=== PATIENT | male | born 1950 | race Hispanic/Latino ===

== ENCOUNTER 2020-01-22 06:30 | Day surgery (SDC) | payer OTHER, MEDICARE ==
[2020-01-19 14:11] VITALS: BP 149/85; PULSE 116; RESP 17
--- NOTE | 2020-01-19 15:04 | NUR ---
RE: ABNORMAL LABS INFORMED DEBRA AVELAR REGARDING PLT 512. NO NEW ORDERS RECEIVED, MAY PROCEED WITH PROCEDURE.
[2020-01-22] VITALS (10 sets, daily range): BP systolic 92–133; BP diastolic 45–84; PULSE 61–93; RESP 15–17; TEMP 97.5–97.8
[~2020-01-22] VITALS: Ht 168.9 cm; Wt 77.3 kg
[2020-01-22] MEDS ORDERED: NITROGLYCERIN 2 MG/VIAL VIAL IV ONE (07:36)
[2020-01-22] MEDS ORDERED: SODIUM BICARB 50MEQ 50ML VIAL ONE (07:36)
[2020-01-22] MEDS ORDERED: HEPARIN SODIUM 1000UNIT/ML 10ML VIAL ONE (07:36)
[2020-01-22] MEDS ORDERED: IODIXANOL 320 MG/ML 100 ML VIAL ONE (07:37)
[2020-01-22] MEDS ORDERED: FENTANYL CITRATE PF 50 MCG/1 ML 2ML VIAL ONE (07:37)
[2020-01-22] MEDS ORDERED: LIDOCAINE HCL 2% 20ML ONE (07:37)
[2020-01-22] MEDS ORDERED: MIDAZOLAM HCL 1 MG/ML 2ML VIAL ONE (07:37)
[2020-01-22] MEDS ORDERED: SODIUM CHLORIDE 0.9% 1000ML 1,000 ML IV ONE (09:12)
[2020-01-22] MEDS ORDERED: LABETALOL HCL 5 MG/ML 20ML VIAL IV ONE (10:08)
== END 2020-01-22 15:08 | disposition home or self-care (01) ==
LOC: DAH 06:30
PROVIDERS: ATTEND Internal Medicine Cardiovascular Disease
DX: I70.261 Atherosclerosis of native arteries of extremities with gangrene, right leg (principal); I70.92 Chronic total occlusion of artery of the extremities; E11.51 Type 2 diabetes mellitus with diabetic peripheral angiopathy without gangrene; I10 Essential (primary) hypertension; F41.9 Anxiety disorder, unspecified; E11.40 Type 2 diabetes mellitus with diabetic neuropathy, unspecified; E78.5 Hyperlipidemia, unspecified; K21.9 Gastro-esophageal reflux disease without esophagitis; Z88.0 Allergy status to penicillin; Z88.2 Allergy status to sulfonamides; Z79.899 Other long term (current) drug therapy; Z79.84 Long term (current) use of oral hypoglycemic drugs; Z98.890 Other specified postprocedural states; Z79.4 Long term (current) use of insulin; Z95.5 Presence of coronary angioplasty implant and graft; Z88.1 Allergy status to other antibiotic agents; Z82.49 Family history of ischemic heart disease and other diseases of the circulatory system; Z79.01 Long term (current) use of anticoagulants
CPT/HCPCS: 36247; 36415; 71045; 75710; 80048; 81001; 82948 ×2; 85025; 85610; 85730; 93005; A4215; A4216; A4221; A4222; A4223 ×3; A4606; A4663; C1760; C1769; C1893; C1894 ×2; J1644; J2250; J3010; J3490 ×4; J7030; Q9967

== ENCOUNTER 2020-03-27 12:57 | Inpatient (IN) | payer OTHER, MEDICARE ==
[~2020-03-27] VITALS: Ht 172.7 cm; Wt 80.7 kg
[2020-03-27] VITALS (7 sets, daily range): BP systolic 107–131; BP diastolic 60–109
[~2020-03-27 12:57] MED LIST: DOCU-282 PO; INSLAN SQ; METF-446 PO
[2020-03-27] MEDS ORDERED: MEROPENEM 1 GM VIAL ONE (13:18)
[2020-03-27] MEDS ORDERED: SODIUM CHLORIDE 0.9% 1000ML 2,000 ML IV ONE (13:18)
[2020-03-27] MEDS ORDERED: SODIUM CHLORIDE 0.9% 100 ML IV ONE ×2 (13:19→15:12)
[2020-03-27 13:23] LABS: BASOPHILS % (AUTO) 0.1 % (0.0-5.0); EOSINOPHILS % (AUTO) 0.1 % (0.0-8.0); HEMATOCRIT 39.1 % (42-54); LYMPHOCYTES % (AUTO) 6.1 % (21.0-51.0); MEAN CORPUSCULAR HEMOGLOBIN 28.4 pg (27.0-33.0); MEAN CORPUSCULAR HGB CONC 32.2 g/dL (32.0-36.0); MEAN CORPUSCULAR VOLUME 88.1 fL (79-99); MONOCYTES % (AUTO) 11.1 % (3.0-13.0); NEUTROPHILS % (AUTO) 82.1 % (40.0-77.0); NUCLEATED RED BLOOD CELLS 0.5 % (0.0-0.19); PLATELET COUNT (AUTO) 455 K/uL (130-400); RED BLOOD CELL COUNT(AUTO) 4.44 MIL/uL (4.50-6.20); RED CELL DISTRIBUTION WIDTH 13.8 % (11.0-15.5); WHITE BLOOD COUNT (AUTO) 19.2 K/uL (4.8-10.8)
[2020-03-27 13:41] LABS: PARTIAL THROMBOPLASTIN TIME 22.9 SEC (26.3-35.5)
[2020-03-27 13:52] LABS: INR 1.2 (0.85-1.15); PROTHROMBIN TIME 12.9 SEC (9.6-11.6)
[2020-03-27 14:04] LABS: BILIRUBIN,TOTAL 0.8 mg/dL (0.2-1.0); CARBON DIOXIDE 13 mmol/L (21-32); CHLORIDE 93 mmol/L (101-111); CREATINE KINASE, TOTAL 197 U/L (21-232); CREATININE 2.6 mg/dL (0.5-1.5); GLOMERULAR FILTR. RATE CALC 26 mL/min (>60); POTASSIUM 3.7 mmol/L (3.5-5.1); SODIUM SERUM 135 mmol/L (136-145); UREA NITROGEN, BLOOD 49 mg/dL (7-18)
[2020-03-27 14:04] LABS: APPEARANCE,URINE Clear (CLEAR); BILIRUBIN,URINE Negative (NEGATIVE); COLOR,URINE Yellow (YELLOW); GLUCOSE, URINE (UA) >=1000 mg/dL (NEGATIVE); KETONES,URINE Trace mg/dL (NEGATIVE); LEUKOCYTE ESTERASE ,URINE Negative (NEGATIVE); NITRATE,URINE Negative (NEGATIVE); OCCULT BLOOD,URINE Negative (NEGATIVE); PROTEIN,URINE Negative (NEGATIVE)
[2020-03-27 14:05] LABS: ALBUMIN 2.7 g/dL (3.5-5.0); TOTAL PROTEIN, SERUM 6.9 g/dL (6.0-8.3); TROPONIN I < 0.04 ng/mL (0.00-0.06)
[2020-03-27 14:06] LABS: GLUCOSE,RANDOM 551 mg/dL (70-105)
[2020-03-27 14:08] LABS: MYOGLOBIN 1243 ng/mL (10-92)
[2020-03-27 14:14] LABS: BACTERIA,URINE Rare /HPF (None Seen); RBC,URINE 0-1 /HPF (0-1); SQUAMOUS EPITHELIAL CELL,UR Rare /HPF (0-2); WBC,URINE 0-1 /HPF (0-1)
[2020-03-27] MEDS ORDERED: INSULIN HUMULIN R 100 UNIT/ML 3ML ONE ×2 (14:19→15:12)
[2020-03-27 14:22] LABS: ALANINE AMINOTRANSFERASE 20 U/L (12-78); ASPARTATE AMINOTRANSFERASE 29 U/L (10-37)
[2020-03-27 14:47] LABS: ABG BASE EXCESS -9.5 mmol/L (-2.0-3.0); ABG OXYGEN SATURATION 98.1 % (95.0-99.0); ABG PCO2 26 mmHg (35-48)
[2020-03-27] MEDS ORDERED: NS-20 MEQ KCL 1000ML 1,000 ML IV ONE (16:10)
[2020-03-27] MEDS: SODIUM CHLORIDE 0.9% 1000ML 1,000 ML IV SCH ×2 (16:15→22:20)
[2020-03-27] MEDS ORDERED: INSULIN REGULAR, HUMAN 3ML 100 UNIT in SODIUM CHLORIDE 0.9% 99 ML IV PRN ×2 (16:15)
--- NOTE | 2020-03-27 17:15 | NUR ---
ADMISSION TO ICU PT WAS ADMITTED TO THE ROOM AT 1715. VITAL SIGNS [id number]. MEDITECH SYSTEM WAS DOWN AND UNABLE TO CHART. PT HAD COFFEE GROUNDED SPUTUM. BRISA CANDELARIO WAS MADE AWARE. ORDERED PROTONIX AND SANDOSTATIN DRIP. DR. LESLIE WAS CONSULTED AND HAS ASKED FOR A COVID PCR TEST PRIOR TO DOING AN EGD. BG CHECKS Q1HR DURING DOWN TIME. INSULIN DRIP MAINTAINED.
[2020-03-27] MEDS ORDERED: ONDANSETRON HCL 4 MG/2 ML VIAL ONE (18:33)
[2020-03-27] MEDS ORDERED: OCTREOTIDE ACETATE 1,250 MCG in SODIUM CHLORIDE 0.9% 250 ML IV SCH (18:45)
[2020-03-27] MEDS ORDERED: PANTOPRAZOLE SODIUM 80 MG in SODIUM CHLORIDE 0.9% 100 ML IV SCH (18:45)
[2020-03-27] MEDS ORDERED: DOCUSATE SODIUM 100 MG CAP PO SCH (19:00)
[2020-03-27] MEDS ORDERED: INSULIN REGULAR, HUMAN 3ML 100 UNIT in SODIUM CHLORIDE 0.9% 99 ML IV SCH ×2 (19:30)
[2020-03-27 19:51] LABS: HEMATOCRIT 34.6 % (42-54)
[2020-03-27] MEDS ORDERED: HEPARIN SODIUM 5000UNIT/ML 1ML VIAL SQ SCH (21:00)
[2020-03-27] MEDS: HYDROMORPHONE HCL 0.5 MG/0.5 ML ML IVP PRN (21:05)
[2020-03-27] MEDS: ONDANSETRON HCL 4 MG/2 ML VIAL IVP PRN (21:06)
[2020-03-27] MEDS ORDERED: SODIUM CHLORIDE 0.9% 1000ML 1,000 ML IV SCH (21:45)
[2020-03-27] MEDS: METRONIDAZOLE 500MG/100ML BAG 100 ML IV SCH (21:52)
[2020-03-27 22:19] LABS: BASOPHILS % (AUTO) 0.1 % (0.0-5.0); HEMATOCRIT 23.9 % (42-54); LYMPHOCYTES % (AUTO) 6.5 % (21.0-51.0); MEAN CORPUSCULAR HEMOGLOBIN 28.4 pg (27.0-33.0); MEAN CORPUSCULAR HGB CONC 33.5 g/dL (32.0-36.0); MEAN CORPUSCULAR VOLUME 84.8 fL (79-99); MONOCYTES % (AUTO) 10.6 % (3.0-13.0); NEUTROPHILS % (AUTO) 82.2 % (40.0-77.0); NUCLEATED RED BLOOD CELLS 0.4 % (0.0-0.19); PLATELET COUNT (AUTO) 226 K/uL (130-400); RED BLOOD CELL COUNT(AUTO) 2.82 MIL/uL (4.50-6.20); RED CELL DISTRIBUTION WIDTH 13.7 % (11.0-15.5)
[2020-03-27 22:23] LABS: ABG BASE EXCESS -1.9 mmol/L (-2.0-3.0); ABG HCO3 21.8 mmol/L (21.0-28.0); ABG OXYGEN SATURATION 95.6 % (95.0-99.0); ABG PCO2 34 mmHg (35-48)
[2020-03-27 23:26] LABS: CREATININE 1.4 mg/dL (0.5-1.5); POTASSIUM 3.2 mmol/L (3.5-5.1)
[2020-03-27 23:30] LABS: ALBUMIN 1.9 g/dL (3.5-5.0); BILIRUBIN,TOTAL 0.3 mg/dL (0.2-1.0); MAGNESIUM 1.9 mg/dL (1.80-2.40)
[2020-03-28] VITALS (23 sets, daily range): BP systolic 102–137; BP diastolic 55–78
[2020-03-28] MEDS ORDERED: SODIUM CHLORIDE 0.9% 1000ML 1,000 ML IV ONE
[2020-03-28] MEDS ORDERED: METOPROLOL TARTRATE 1 MG/ML 5ML VIAL IV ONE (00:09)
[2020-03-28] MEDS ORDERED: DEXTROSE 50%-WATER 50 ML DISP.SYRIN IV ONE (00:38)
[2020-03-28] MEDS: DEXTROSE 5 %-0.45 % NACL 1,000 ML IV PRN ×3 (01:56→21:37)
[2020-03-28] MEDS: POTASSIUM CHLORIDE 10MEQ/100ML 100 ML IV PRN ×2 (02:06→03:14)
[2020-03-28] MEDS: SODIUM CHLORIDE 0.9% 1000ML 1,000 ML IV SCH ×9 (02:15→23:29)
[2020-03-28] MEDS: HYDROMORPHONE HCL 0.5 MG/0.5 ML ML IVP PRN (03:13)
[2020-03-28 04:04] LABS: BASOPHILS % (AUTO) 0.2 % (0.0-5.0); EOSINOPHILS % (AUTO) 0.6 % (0.0-8.0); HEMATOCRIT 31.4 % (42-54); MEAN CORPUSCULAR HGB CONC 32.8 g/dL (32.0-36.0); MEAN CORPUSCULAR VOLUME 85.3 fL (79-99); MONOCYTES % (AUTO) 10.4 % (3.0-13.0); NEUTROPHILS % (AUTO) 81.4 % (40.0-77.0); NUCLEATED RED BLOOD CELLS 0.4 % (0.0-0.19); PLATELET COUNT (AUTO) 317 K/uL (130-400); RED BLOOD CELL COUNT(AUTO) 3.68 MIL/uL (4.50-6.20); RED CELL DISTRIBUTION WIDTH 13.7 % (11.0-15.5); WHITE BLOOD COUNT (AUTO) 11.2 K/uL (4.8-10.8)
[2020-03-28 04:14] LABS: ABG BASE EXCESS -5.3 mmol/L (-2.0-3.0); ABG HCO3 19.5 mmol/L (21.0-28.0); ABG OXYGEN SATURATION 95.6 % (95.0-99.0); ABG PCO2 36 mmHg (35-48)
[2020-03-28 04:21] LABS: B-TYPE NATRIURETIC PEPTIDE 54 pg/mL (0-100)
[2020-03-28 04:30] LABS: HEMOGLOBIN A1C 7.9 % (4.0-6.0)
[2020-03-28 04:32] LABS: ALBUMIN 1.8 g/dL (3.5-5.0); BILIRUBIN,TOTAL 0.5 mg/dL (0.2-1.0); CREATININE 1.4 mg/dL (0.5-1.5); MAGNESIUM 2.4 mg/dL (1.80-2.40); PHOSPHORUS 2.8 mg/dL (2.5-4.9); POTASSIUM 4.2 mmol/L (3.5-5.1); TOTAL PROTEIN, SERUM 4.8 g/dL (6.0-8.3)
[2020-03-28] MEDS: METRONIDAZOLE 500MG/100ML BAG 100 ML IV SCH ×3 (06:50→21:41)
[2020-03-28] MEDS: METOPROLOL TARTRATE 1 MG/ML 5ML VIAL IV PRN (06:56)
[2020-03-28] MEDS: PANTOPRAZOLE 40 MG/VIAL IVP SCH (08:39)
[2020-03-28] MEDS: METOPROLOL TARTRATE 1 MG/ML 5ML VIAL IV SCH (08:59)
[2020-03-28 09:29] LABS: ABG HCO3 20.8 mmol/L (21.0-28.0); ABG OXYGEN SATURATION 95.7 % (95.0-99.0); ABG PCO2 34 mmHg (35-48)
[2020-03-28 10:08] LABS: CREATININE 1.3 mg/dL (0.5-1.5); MAGNESIUM 1.9 mg/dL (1.80-2.40); POTASSIUM 3.8 mmol/L (3.5-5.1)
[2020-03-28] MEDS: ACETAMINOPHEN 325 MG TAB PO PRN ×2 (12:29→21:42)
[2020-03-28] MEDS ORDERED: LACTATED RINGERS 1000ML 2,000 ML IV ONE (13:05)
[2020-03-28] MEDS ORDERED: LACTATED RINGERS 1000ML 1,000 ML IV SCH (13:15)
[2020-03-28] MEDS: LACTATED RINGERS 1000ML 1,000 ML IV SCH ×4 (14:08→23:27)
[2020-03-28] MEDS ORDERED: HYDRALAZINE HCL 20 MG/ML VIAL IV PRN (15:45)
[2020-03-28] MEDS ORDERED: ACETAMINOPHEN-CODEINE 300/30MG TAB PO PRN (15:45)
[2020-03-28 16:06] LABS: MAGNESIUM 1.7 mg/dL (1.80-2.40); POTASSIUM 3.3 mmol/L (3.5-5.1)
--- NOTE | 2020-03-28 17:37 | NUR ---
DC PLAN CHECKED ON PATIENT. SLEEPING. CALLED SON ON FACE SHEET NO ANSWER. BELINDA WILL CONTINUE TO FOLLOW. Addendum: 03/28/20 at 1738 by CARLOS LOPEZ RN CM Amended: Links added.
--- NOTE | 2020-03-28 20:00 | NUR ---
ASSESSMENT PT RESTING IN BED, C/O NAUSEA AND ABD PAIN. IV FLUIDS INFUSING WITHOUT DIFFICULTY. ASSESSMENT COMPLETED, SEE FLOW SHEET.
[2020-03-28] MEDS: MAGNESIUM 2GM PREMIX 50ML 50 ML IV PRN (21:41)
[2020-03-28] MEDS: ONDANSETRON HCL 4 MG/2 ML VIAL IVP PRN (21:43)
[2020-03-29] VITALS (20 sets, daily range): BP systolic 105–139; BP diastolic 49–74
--- NOTE | 2020-03-29 03:00 | NUR ---
COVID NEGATIVE PT COVID NEGATIVE, SEE LAB. DR LESLIE PENDING NOTIFICATION FOR THIS MORNING
[2020-03-29 03:34] LABS: BASOPHILS % (AUTO) 0.4 % (0.0-5.0); EOSINOPHILS % (AUTO) 0.2 % (0.0-8.0); HEMATOCRIT 28.7 % (42-54); LYMPHOCYTES % (AUTO) 10.8 % (21.0-51.0); MEAN CORPUSCULAR HEMOGLOBIN 28.1 pg (27.0-33.0); MEAN CORPUSCULAR HGB CONC 32.8 g/dL (32.0-36.0); MEAN CORPUSCULAR VOLUME 85.9 fL (79-99); MONOCYTES % (AUTO) 6.3 % (3.0-13.0); NEUTROPHILS % (AUTO) 81.7 % (40.0-77.0); NUCLEATED RED BLOOD CELLS 0.4 % (0.0-0.19); PLATELET COUNT (AUTO) 299 K/uL (130-400); RED BLOOD CELL COUNT(AUTO) 3.34 MIL/uL (4.50-6.20); RED CELL DISTRIBUTION WIDTH 14.2 % (11.0-15.5); WHITE BLOOD COUNT (AUTO) 5.4 K/uL (4.8-10.8)
[2020-03-29 03:53] LABS: ALBUMIN 1.5 g/dL (3.5-5.0); BILIRUBIN,TOTAL 0.3 mg/dL (0.2-1.0); CREATININE 0.9 mg/dL (0.5-1.5); MAGNESIUM 2.5 mg/dL (1.80-2.40); PHOSPHORUS 1.7 mg/dL (2.5-4.9); TOTAL PROTEIN, SERUM 4.3 g/dL (6.0-8.3)
[2020-03-29 03:54] LABS: POTASSIUM 2.7 mmol/L (3.5-5.1)
--- NOTE | 2020-03-29 05:00 | NUR ---
JULIA VALVERDE NP MADE AWARE OF K LEVEL OF 2.7, SEE ORDERS FOR KCL PROTOCOL
[2020-03-29] MEDS: METRONIDAZOLE 500MG/100ML BAG 100 ML IV SCH ×3 (05:18→20:55)
[2020-03-29] MEDS ORDERED: POTASSIUM CHLORIDE 20MEQ/100ML 100 ML IV ONE (05:22)
[2020-03-29] MEDS: METOPROLOL TARTRATE 1 MG/ML 5ML VIAL IV SCH (07:23)
[2020-03-29] MEDS: DEXTROSE 5 %-0.45 % NACL 1,000 ML IV PRN (07:37)
[2020-03-29] MEDS: PANTOPRAZOLE 40 MG/VIAL IVP SCH (08:01)
[2020-03-29] MEDS: POTASSIUM CHLORIDE 20MEQ/100ML 100 ML IV PRN ×3 (08:17→15:42)
[2020-03-29] MEDS: LIDOCAINE HCL-MPF 1% 2ML VIAL IV PRN ×2 (08:18→10:13)
--- NOTE | 2020-03-29 08:30 | NUR ---
Dr Rizvi notified about COVID PCR negative, new orders given to schedule EGD for today
[2020-03-29] MEDS ORDERED: POTASSIUM PHOS 15 mMOL+NS250ML 250 ML IV PRN (09:00)
--- NOTE | 2020-03-29 09:25 | NUR ---
Administered fleets enema, as ordered per Emiliana SamsonEX CHEF
--- NOTE | 2020-03-29 10:30 | NUR ---
Noted moderate size brown colored soft stool after enema given, nicolás care provided
--- NOTE | 2020-03-29 12:55 | NUR ---
Transferred to [facility] via bed for scheduled EGD
[2020-03-29] MEDS ORDERED: MIDAZOLAM HCL 1 MG/ML 2ML VIAL ONE (13:29)
[2020-03-29] MEDS ORDERED: PROPOFOL 10 MG/ML 20ML VIAL IV ONE (13:29)
--- NOTE | 2020-03-29 14:10 | NUR ---
Back in bed from Endoscopy. Dr Yuen at bedside to assess patient, new orders given
--- NOTE | 2020-03-29 14:10 | NUR ---
New orders given per Dr Yuen, including to discontinue Insulin Drip which was turned off since this AM at 0800, due to low K level
[2020-03-29] MEDS ORDERED: DEXTROSE 50%-WATER 50 ML DISP.SYRIN IV PRN (14:45)
[2020-03-29] MEDS ORDERED: GLUCAGON 1MG KIT 1 MG ML IM PRN (14:45)
[2020-03-29] MEDS: INSULIN GLARGINE 100 UNITS/ML 10 ML VIAL SQ SCH (14:59)
[2020-03-29] MEDS: INSULIN HUMULIN R 100 UNIT/ML 3ML SQ SCH ×4 (15:00→20:47)
--- NOTE | 2020-03-29 15:00 | NUR ---
Administered fleets enema at this time, as ordered per Dr Rizvi
[2020-03-29] MEDS: LACTULOSE 20 GM/30 ML UDCUP PO SCH ×5 (15:04→22:55)
[2020-03-29] MEDS: METHYLNALTREXONE BROMIDE 12 MG/0.6 ML VIAL SQ SCH (15:19)
--- NOTE | 2020-03-29 16:27 | NUR ---
DC PLAN PATIENT LIVES WITH SON AND DAUGHTER. PATIENT USES A WALKER, WHEEL CHAIR AND CANE. NO OTHER SERVICES. FEELS SAFE TO RETURN HOME. Addendum: 03/29/20 at 1629 by CARLOS LOPEZ RN CM Amended: Links added.
--- NOTE | 2020-03-29 17:15 | NUR ---
Tolerated clear liquid diet well, denies any nausea or vomiting, 3 large very soft BMs noted after second enema given
--- NOTE | 2020-03-29 18:26 | NUR ---
Bedside report given to Rico Mariee RN, transferred to room 414 via bed.
--- NOTE | 2020-03-29 18:30 | NUR ---
TRANSFER FROM ICU INTO 414, RECEIVED REPORT FROM CHUCKY RN, PT ASLEEP BUT AROUSEABLE, A&OX3, PT RESTING COMFORTABLY, CALL LIGHT WITHIN REACH.
[2020-03-29 19:28] LABS: HEMATOCRIT 27.4 % (42-54)
[2020-03-29] MEDS: PANTOPRAZOLE SODIUM 40 MG TABLET.DR PO SCH (20:55)
[2020-03-29] MEDS: METOPROLOL TARTRATE 1 MG/ML 5ML VIAL IV PRN (23:16)
[2020-03-30 00:04] VITALS: BP 127/72
[2020-03-30 04:12] VITALS: BP 125/68
[2020-03-30 05:18] LABS: BASOPHILS % (AUTO) 0.5 % (0.0-5.0); EOSINOPHILS % (AUTO) 0.5 % (0.0-8.0); HEMATOCRIT 28.5 % (42-54); LYMPHOCYTES % (AUTO) 10.1 % (21.0-51.0); MEAN CORPUSCULAR HEMOGLOBIN 27.8 pg (27.0-33.0); MEAN CORPUSCULAR HGB CONC 32.3 g/dL (32.0-36.0); MEAN CORPUSCULAR VOLUME 86.1 fL (79-99); MONOCYTES % (AUTO) 11.2 % (3.0-13.0); NUCLEATED RED BLOOD CELLS 0.8 % (0.0-0.19); PLATELET COUNT (AUTO) 421 K/uL (130-400); RED BLOOD CELL COUNT(AUTO) 3.31 MIL/uL (4.50-6.20); RED CELL DISTRIBUTION WIDTH 14.6 % (11.0-15.5); WHITE BLOOD COUNT (AUTO) 6.1 K/uL (4.8-10.8)
[2020-03-30 05:48] LABS: ALBUMIN 1.4 g/dL (3.5-5.0); BILIRUBIN,TOTAL 0.4 mg/dL (0.2-1.0); CREATININE 0.8 mg/dL (0.5-1.5); MAGNESIUM 2.6 mg/dL (1.80-2.40); TOTAL PROTEIN, SERUM 4.6 g/dL (6.0-8.3)
[2020-03-30] MEDS: METRONIDAZOLE 500MG/100ML BAG 100 ML IV SCH ×3 (05:57→20:54)
[2020-03-30] MEDS: INSULIN HUMULIN R 100 UNIT/ML 3ML SQ SCH ×7 (06:00→20:54)
[2020-03-30] MEDS: HYDROMORPHONE HCL 0.5 MG/0.5 ML ML IVP PRN (06:02)
[2020-03-30 07:48] VITALS: BP 126/74
[2020-03-30] MEDS ORDERED: PEG 3350/NA SULF,BICARB,CL/KCL 4000 ML SOLN PO SCH (09:00)
[2020-03-30] MEDS: LIDOCAINE HCL-MPF 1% 2ML VIAL IV PRN (09:35)
[2020-03-30] MEDS: METOPROLOL TARTRATE 1 MG/ML 5ML VIAL IV PRN (09:35)
[2020-03-30] MEDS: PANTOPRAZOLE SODIUM 40 MG TABLET.DR PO SCH ×2 (09:35→20:54)
[2020-03-30] MEDS: POTASSIUM CHLORIDE 20MEQ/100ML 100 ML IV PRN ×3 (11:35→21:41)
[2020-03-30 11:37] VITALS: BP 128/76
[2020-03-30] MEDS: INSULIN GLARGINE 100 UNITS/ML 10 ML VIAL SQ SCH (11:37)
[2020-03-30 16:00] VITALS: BP 107/62
[2020-03-30 19:40] VITALS: BP 121/62
[2020-03-31 00:19] VITALS: BP 113/55
[2020-03-31 05:33] LABS: BASOPHILS % (AUTO) 0.3 % (0.0-5.0); EOSINOPHILS % (AUTO) 1.6 % (0.0-8.0); HEMATOCRIT 24.8 % (42-54); LYMPHOCYTES % (AUTO) 11.7 % (21.0-51.0); MEAN CORPUSCULAR HGB CONC 32.3 g/dL (32.0-36.0); MEAN CORPUSCULAR VOLUME 86.7 fL (79-99); MONOCYTES % (AUTO) 12.7 % (3.0-13.0); NEUTROPHILS % (AUTO) 72.9 % (40.0-77.0); PLATELET COUNT (AUTO) 412 K/uL (130-400); RED BLOOD CELL COUNT(AUTO) 2.86 MIL/uL (4.50-6.20); RED CELL DISTRIBUTION WIDTH 14.9 % (11.0-15.5); WHITE BLOOD COUNT (AUTO) 6.2 K/uL (4.8-10.8)
[2020-03-31 05:58] LABS: ALBUMIN 1.2 g/dL (3.5-5.0); BILIRUBIN,TOTAL 0.4 mg/dL (0.2-1.0); CREATININE 0.7 mg/dL (0.5-1.5); TOTAL PROTEIN, SERUM 3.8 g/dL (6.0-8.3)
[2020-03-31 06:01] LABS: POTASSIUM 2.8 mmol/L (3.5-5.1)
[2020-03-31] MEDS: INSULIN HUMULIN R 100 UNIT/ML 3ML SQ SCH ×7 (06:08→20:32)
[2020-03-31] MEDS: METRONIDAZOLE 500MG/100ML BAG 100 ML IV SCH ×2 (06:08→13:14)
[2020-03-31 06:21] VITALS: BP 124/61
[2020-03-31] MEDS: METHYLNALTREXONE BROMIDE 12 MG/0.6 ML VIAL SQ SCH (09:00)
[2020-03-31] MEDS: PANTOPRAZOLE SODIUM 40 MG TABLET.DR PO SCH ×2 (09:01→19:52)
[2020-03-31] MEDS: INSULIN GLARGINE 100 UNITS/ML 10 ML VIAL SQ SCH (09:03)
[2020-03-31] MEDS: POTASSIUM CHLORIDE 20 MEQ ERTAB PO PRN ×3 (09:08→15:31)
[2020-03-31] MEDS: POTASSIUM CHLORIDE 20MEQ/100ML 100 ML IV PRN (09:09)
[2020-03-31 11:47] VITALS: BP 133/50
--- NOTE | 2020-03-31 15:20 | NUR ---
RIGHT FOOT AMPUTATION DRESSING CHANGED, IODINE, STERILE GAUZES AND KERLIX APPLY.
[2020-03-31 16:00] VITALS: BP 125/77
[2020-03-31 20:29] VITALS: BP 138/44
[2020-03-31 23:38] VITALS: BP 160/64
[2020-04-01] MEDS: LIDOCAINE HCL-MPF 1% 2ML VIAL IV PRN (00:21)
[2020-04-01] MEDS: POTASSIUM CHLORIDE 20MEQ/100ML 100 ML IV PRN ×2 (00:21→09:43)
[2020-04-01] MEDS: POTASSIUM CHLORIDE 20 MEQ ERTAB PO PRN ×4 (00:21→23:49)
[2020-04-01 04:25] VITALS: BP 116/54
[2020-04-01 05:25] LABS: BASOPHILS % (AUTO) 0.5 % (0.0-5.0); HEMATOCRIT 25.7 % (42-54); LYMPHOCYTES % (AUTO) 11.8 % (21.0-51.0); MEAN CORPUSCULAR HEMOGLOBIN 28.1 pg (27.0-33.0); MEAN CORPUSCULAR HGB CONC 33.1 g/dL (32.0-36.0); MEAN CORPUSCULAR VOLUME 85.1 fL (79-99); MONOCYTES % (AUTO) 12.3 % (3.0-13.0); NEUTROPHILS % (AUTO) 71.6 % (40.0-77.0); PLATELET COUNT (AUTO) 453 K/uL (130-400); RED BLOOD CELL COUNT(AUTO) 3.02 MIL/uL (4.50-6.20); RED CELL DISTRIBUTION WIDTH 14.6 % (11.0-15.5); WHITE BLOOD COUNT (AUTO) 6.1 K/uL (4.8-10.8)
[2020-04-01 05:48] LABS: ALBUMIN 1.2 g/dL (3.5-5.0); BILIRUBIN,TOTAL 0.3 mg/dL (0.2-1.0); CREATININE 0.5 mg/dL (0.5-1.5); MAGNESIUM 1.5 mg/dL (1.80-2.40); PHOSPHORUS 1.5 mg/dL (2.5-4.9)
[2020-04-01] MEDS: INSULIN HUMULIN R 100 UNIT/ML 3ML SQ SCH ×7 (06:11→20:34)
[2020-04-01] MEDS: MAGNESIUM 2GM PREMIX 50ML 50 ML IV PRN (06:17)
[2020-04-01] MEDS ORDERED: POTASSIUM CHLORIDE 10MEQ/100ML 10 MEQ/100 ML ML IV SCH (08:15)
[2020-04-01] MEDS ORDERED: SODIUM CHLORIDE 0.9% IV SCH (08:15)
[2020-04-01] MEDS ORDERED: POTASSIUM PHOSPHATE IV SCH (08:15)
[2020-04-01] MEDS: TAMSULOSIN HCL 0.4 MG CAP.ER.24H PO SCH (09:40)
[2020-04-01] MEDS: PANTOPRAZOLE SODIUM 40 MG TABLET.DR PO SCH ×2 (09:41→20:34)
[2020-04-01] MEDS: ENOXAPARIN SODIUM 40 MG/0.4 ML SYRINGE SQ SCH (09:43)
[2020-04-01 13:35] VITALS: BP 114/63
[2020-04-01] MEDS ORDERED: PHARMACY COMMUNICATION MISC SCH (14:00)
--- NOTE | 2020-04-01 14:47 | NUR ---
SPOKE TO SON ADRIAN ADEN PLNANING SON ANGELA DIOR LOOKS AFTER FATHER- STATES PATIENT WAS 'ALWAYS ON THE COUCH' BECAUSE HE WAS TOO WEAK TO GET UP. STATES PATIENT 'NOT TREATED FOR HIS DM AT [facility] [place],' WAS WALKING W WALKER PRIOR TO ADMISSION THERE. DOES NOT WANT PLACEMENT FOR PATIENT, WELL MED WILL SEND HOME HEALTH. DECLINING ANY PLACEMENT AT THIS TIME, CM TO FOLLOW. Addendum: 04/01/20 at 1450 by MO DOMINGUEZ RN CM Amended: Links added.
[2020-04-01] MEDS ORDERED: POTASSIUM PHOS 15 mMOL+NS250ML 250 ML IV PRN (15:30)
[2020-04-01] MEDS ORDERED: MAG HYDROX/AL HYDROX/SIMETH ES 30 ML SUSP UDCUP PO PRN (15:45)
[2020-04-01 15:51] LABS: MAGNESIUM 1.7 mg/dL (1.80-2.40); POTASSIUM 3.1 mmol/L (3.5-5.1)
[2020-04-01 18:13] VITALS: BP 127/63
[2020-04-01 19:49] VITALS: BP 118/64
[2020-04-01 23:45] VITALS: BP 99/53
[2020-04-02] VITALS (7 sets, daily range): BP systolic 107–147; BP diastolic 41–83
[2020-04-02 06:03] LABS: BASOPHILS % (AUTO) 0.2 % (0.0-5.0); EOSINOPHILS % (AUTO) 1.1 % (0.0-8.0); HEMATOCRIT 24.7 % (42-54); MEAN CORPUSCULAR HEMOGLOBIN 27.2 pg (27.0-33.0); MEAN CORPUSCULAR VOLUME 85.2 fL (79-99); MONOCYTES % (AUTO) 12.5 % (3.0-13.0); NEUTROPHILS % (AUTO) 73.2 % (40.0-77.0); PLATELET COUNT (AUTO) 458 K/uL (130-400); RED CELL DISTRIBUTION WIDTH 14.6 % (11.0-15.5); WHITE BLOOD COUNT (AUTO) 5.3 K/uL (4.8-10.8)
[2020-04-02 06:27] LABS: ALBUMIN 1.1 g/dL (3.5-5.0); BILIRUBIN,TOTAL 0.3 mg/dL (0.2-1.0); CREATININE 0.5 mg/dL (0.5-1.5); MAGNESIUM 1.4 mg/dL (1.80-2.40); PHOSPHORUS 2.3 mg/dL (2.5-4.9); TOTAL PROTEIN, SERUM 3.7 g/dL (6.0-8.3)
[2020-04-02 06:34] LABS: POTASSIUM 2.9 mmol/L (3.5-5.1)
[2020-04-02] MEDS: INSULIN HUMULIN R 100 UNIT/ML 3ML SQ SCH ×7 (06:36→21:00)
[2020-04-02] MEDS: PANTOPRAZOLE SODIUM 40 MG TABLET.DR PO SCH ×2 (07:38→21:11)
[2020-04-02] MEDS: ENOXAPARIN SODIUM 40 MG/0.4 ML SYRINGE SQ SCH (07:38)
[2020-04-02] MEDS: TAMSULOSIN HCL 0.4 MG CAP.ER.24H PO SCH (07:38)
[2020-04-02] MEDS: POTASSIUM CHLORIDE 10% ELIXIR 20 MEQ/15 ML UDCUP PO PRN ×2 (07:40→07:41)
--- NOTE | 2020-04-02 08:00 | NUR ---
ASSESSMENT PT IS AAOX3 DENIES CP DENIES SOB DENIES NV NO COMPLAINTS AT THIS TIME, RESTING IN BED. CALL LIGHT WITHIN REACH. AM MEDS GIVEN AND TOLERATED.
[2020-04-02] MEDS ORDERED: INSULIN GLARGINE 100 UNITS/ML 10 ML VIAL SQ SCH (09:00)
[2020-04-02] MEDS ORDERED: DRONABINOL 2.5 MG CAP PO ONE (09:00)
--- NOTE | 2020-04-02 10:19 | NUR ---
MD ROUNDS DR AADME AND Ruben MAHAJAN PA-C ROUNDING, ORDERS RECEIVED.
--- NOTE | 2020-04-02 11:00 | NUR ---
DYSPHAGIA EVAL COMPLETED. -S/S OF ASPIRATION RECOMMEND MECHANICAL SOFT, THIN LIQUIDS; PILLS WHOLE WITH LIQUIDS. Addendum: 04/03/20 at 0936 by LEOPOLDO RUTHERFORD, [facility] Amended: Links added.
--- NOTE | 2020-04-02 11:04 | NUR ---
RD NOTIFICATION Pt admitted with DKA, Sepsis, Abdominal Pain. Diet advanced today, Pending ST eval. 75gm CCD. LBM 04/01. Monitored labs: K 2.9, BG 188, Ca 6.5, P 2.3, Mg 1.40, Alb 1.1. KCl, Insulin medications in place. Recommend Glucerna TID with meals Recommend 60mL ProMod protein supplementation BID Recommend Multivitamin Supplementation with minerals, QD RD to continue to monitor. Please notify as additional nutrition concerns arise. Thank you.
[2020-04-02] MEDS: MAGNESIUM 2GM PREMIX 50ML 50 ML IV SCH (12:25)
--- NOTE | 2020-04-02 13:35 | NUR ---
DRESSING TO RIGHT FOOT CHANGED IODINE CAST APPLIED. TOLERATED WELL. DENIES PAIN.
[2020-04-02] MEDS: BISACODYL 10 MG SUPP.RECT RC SCH ×2 (20:00→21:11)
[2020-04-02] MEDS: METOCLOPRAMIDE 5 MG TABLET PO SCH (21:11)
--- NOTE | 2020-04-02 21:16 | NUR ---
PATIENT STATES HE HAS BEEN HAVING BMs all day.Refused suppository.
[2020-04-03] MEDS ORDERED: SODIUM CHLORIDE 0.9% 50 ML IV ONE (01:51)
[2020-04-03] MEDS: POTASSIUM CHLORIDE 20MEQ/100ML 100 ML IV PRN (02:00)
[2020-04-03] MEDS: LIDOCAINE HCL-MPF 1% 2ML VIAL IV PRN (02:00)
[2020-04-03 03:14] VITALS: BP 120/57
[2020-04-03] MEDS: INSULIN HUMULIN R 100 UNIT/ML 3ML SQ SCH ×7 (05:57→21:00)
[2020-04-03 06:27] LABS: BASOPHILS % (AUTO) 0.2 % (0.0-5.0); EOSINOPHILS % (AUTO) 1.1 % (0.0-8.0); HEMATOCRIT 24.4 % (42-54); LYMPHOCYTES % (AUTO) 16.3 % (21.0-51.0); MEAN CORPUSCULAR HEMOGLOBIN 27.4 pg (27.0-33.0); MEAN CORPUSCULAR HGB CONC 32.4 g/dL (32.0-36.0); MEAN CORPUSCULAR VOLUME 84.7 fL (79-99); MONOCYTES % (AUTO) 11.7 % (3.0-13.0); NEUTROPHILS % (AUTO) 69.9 % (40.0-77.0); PLATELET COUNT (AUTO) 486 K/uL (130-400); RED BLOOD CELL COUNT(AUTO) 2.88 MIL/uL (4.50-6.20); RED CELL DISTRIBUTION WIDTH 14.7 % (11.0-15.5); WHITE BLOOD COUNT (AUTO) 6.3 K/uL (4.8-10.8)
[2020-04-03 06:36] LABS: CREATININE 0.5 mg/dL (0.5-1.5); MAGNESIUM 1.8 mg/dL (1.80-2.40)
[2020-04-03 06:50] LABS: POTASSIUM 2.5 mmol/L (3.5-5.1)
[2020-04-03] MEDS: METOCLOPRAMIDE 5 MG TABLET PO SCH ×3 (06:54→16:37)
[2020-04-03] MEDS: MAGNESIUM 2GM PREMIX 50ML 50 ML IV SCH (07:00)
[2020-04-03] MEDS: POTASSIUM CHLORIDE 20 MEQ ERTAB PO PRN ×2 (07:00→08:39)
--- NOTE | 2020-04-03 08:15 | NUR ---
AM ASSESSMENT PT LAYING IN BED, HOB ELEVATED 30 DEGREES, RESTING. A/O X 3. NO SOB. NO DISTRESS NOTED. O2 NC @ 2L. DENIES CHEST PAIN OR DISCOMFORT. DENIES INCISIONAL PAIN. TELE: SR. DENIES N/V AND/OR DIARRHEA. DENIES ABD PAIN. AGUIAR CATHETER PATENT & DRAINING. LT BKA. RT TOE AMPUTATION DSG DRY & INTACT. NO DRAINAGE NOTED. INSTRUCTED TO CALL FOR ASSISTANCE. CALL DEBRA W/IN REACH.
[2020-04-03] MEDS: TAMSULOSIN HCL 0.4 MG CAP.ER.24H PO SCH (08:38)
[2020-04-03] MEDS: PANTOPRAZOLE SODIUM 40 MG TABLET.DR PO SCH ×2 (08:38→21:00)
[2020-04-03] MEDS: BISACODYL 10 MG SUPP.RECT RC SCH (08:39)
[2020-04-03] MEDS: ENOXAPARIN SODIUM 40 MG/0.4 ML SYRINGE SQ SCH (08:39)
[2020-04-03] MEDS: INSULIN GLARGINE 100 UNITS/ML 10 ML VIAL SQ SCH (08:43)
[2020-04-03 08:44] VITALS: BP 111/47
[2020-04-03] MEDS: POTASSIUM CHLORIDE 10% ELIXIR 20 MEQ/15 ML UDCUP PO PRN ×5 (08:54→17:46)
[2020-04-03 12:23] VITALS: BP 106/43
[2020-04-03 16:00] VITALS: BP 94/47
[2020-04-03 20:18] VITALS: BP 112/56
[2020-04-03 23:10] VITALS: BP 110/57
[2020-04-03] MEDS ORDERED: TAMS-1 PO (23:35)
[2020-04-03] MEDS ORDERED: INSU100V3 SQ (23:35)
[2020-04-03] MEDS ORDERED: INSLAN SQ (23:35)
[2020-04-04 04:15] VITALS: BP 97/47
[2020-04-04 04:46] LABS: HEMATOCRIT 23.5 % (42-54); MEAN CORPUSCULAR HEMOGLOBIN 27.6 pg (27.0-33.0); MEAN CORPUSCULAR HGB CONC 32.8 g/dL (32.0-36.0); MEAN CORPUSCULAR VOLUME 84.2 fL (79-99); RED BLOOD CELL COUNT(AUTO) 2.79 MIL/uL (4.50-6.20); WHITE BLOOD COUNT (AUTO) 6.2 K/uL (4.8-10.8)
[2020-04-04 05:30] LABS: CREATININE 0.5 mg/dL (0.5-1.5); MAGNESIUM 1.7 mg/dL (1.80-2.40)
[2020-04-04 05:51] LABS: POTASSIUM 2.9 mmol/L (3.5-5.1)
[2020-04-04] MEDS: INSULIN HUMULIN R 100 UNIT/ML 3ML SQ SCH ×7 (06:07→21:16)
[2020-04-04] MEDS: PANTOPRAZOLE SODIUM 40 MG TABLET.DR PO SCH ×2 (07:56→21:11)
[2020-04-04] MEDS: TAMSULOSIN HCL 0.4 MG CAP.ER.24H PO SCH (07:56)
[2020-04-04] MEDS: METOCLOPRAMIDE 5 MG TABLET PO SCH ×2 (07:56→11:30)
[2020-04-04] MEDS: MAGNESIUM 2GM PREMIX 50ML 50 ML IV SCH (07:58)
[2020-04-04] MEDS: POTASSIUM CHLORIDE 20 MEQ ERTAB PO PRN (07:59)
[2020-04-04] MEDS: ENOXAPARIN SODIUM 40 MG/0.4 ML SYRINGE SQ SCH (08:02)
[2020-04-04] MEDS: INSULIN GLARGINE 100 UNITS/ML 10 ML VIAL SQ SCH (08:23)
[2020-04-04 08:37] VITALS: BP 109/55
[2020-04-04] MEDS: POTASSIUM CHLORIDE 20 MEQ ERTAB PO SCH (09:00)
[2020-04-04] MEDS: POTASSIUM CHLORIDE 10% ELIXIR 20 MEQ/15 ML UDCUP PO PRN ×2 (10:25→16:02)
[2020-04-04] MEDS: METRONIDAZOLE 500 MG TABLET PO SCH ×3 (10:26→18:01)
[2020-04-04] MEDS: LEVOFLOXACIN 500 MG TABLET PO SCH (10:26)
--- NOTE | 2020-04-04 11:30 | NUR ---
BENCHMARK/DRESSING CHANGE Zackery FERRER NP FOR DR. Ilya LEY ROUNDING AT THIS TIME. Zackery FERRER NP PLACED ORDER FOR PODIATRY CONSULT DR. KATIA ESCALANTE. INFORMED THAT MD DOES NOT PRIVILEGES HERE. SHE REPLIED THAT PATIENT COULD SEE MD AN OUTPATIENT. I REMOVED RIGHT FOOT GREAT TOE DRESSING SO Zackery FERRER NP COULD ASSESS RIGHT FOOT. RIGHT GREAT TOE AMPUTATION SITE APPEARS NECROTIC, EARNEST STILL PLACE. PERFORMED DRESSING CHANGE, APPLIED BETADINE CAST AND SECURED WITH KERLIX.
[2020-04-04 12:15] VITALS: BP 120/56
[2020-04-04 15:24] LABS: MAGNESIUM 1.9 mg/dL (1.80-2.40); POTASSIUM 3.6 mmol/L (3.5-5.1)
--- NOTE | 2020-04-04 15:47 | NUR ---
PATIENT WILL BE DC'D HOME TO CARE OF FAMILY, D FAMILY AND PATIENT DECLINED SNF OR REHAB PLACEMENT. WOUND CARE PER FAMILY UNTIL SEEN BY HH. HOME HEALTH TO BE SET UP OR RE-CERTIFIED BY PCP. ATTEMPTED TO CALL DR. CHRISTELLE ORTIZ, NO ANSWER. WILL RE-TRY. NEEDING FAX NUMBER TO SEND INFORMATION TO ASSIST HH SET UP . NO REPORT TO OR [facility] BECAUSE PRIMARY WILL NEED TO SIGN REFERRAL TO [facility] OR ALTERNATE COMPANY Addendum: 04/04/20 at 1553 by MO DOMINGUEZ RN CM Amended: Links added.
[2020-04-04 16:00] VITALS: BP 103/55
[2020-04-04] MEDS ORDERED: VANCOMYCIN 1GM+NS 250ML 250 ML IV SCH (16:30)
[2020-04-04] MEDS ORDERED: ARTIFICAL TEARS SOL 15 ML OU PRN (16:30)
[2020-04-04] MEDS ORDERED: COMPOUND IV REFRIGERATED 1 EACH IVSOLN MISC PRN (17:00)
--- NOTE | 2020-04-04 17:00 | NUR ---
DR. SCHMID AWARE OF CONSULT SPOKE TO MD VIA TELEPHONE REGARDING CONSULT. ORDERS PLACED VIA TELEPHONE/RB. DR. SCHMID STATED HE HAS SEEN PATIENT IN THE PAST.
[2020-04-04] MEDS: VANCOMYCIN 2 GM in SODIUM CHLORIDE 0.9% 500ML 500 ML IV SCH ×2 (18:00→18:11)
--- NOTE | 2020-04-04 18:00 | NUR ---
DR. FLYNN AWARE OF CONSULT SPOKE TO MD VIA TELEPHONE REGARDING CONSULT. PATIENT REPORTS HE SEES DR. PEREIRA AN OUTPATIENT.
[2020-04-04 19:53] VITALS: BP 115/49
[2020-04-04 23:26] VITALS: BP 145/37
[2020-04-05 03:38] VITALS: BP 114/57
[2020-04-05 04:57] LABS: BASOPHILS % (AUTO) 0.3 % (0.0-5.0); EOSINOPHILS % (AUTO) 1.2 % (0.0-8.0); HEMATOCRIT 23.6 % (42-54); LYMPHOCYTES % (AUTO) 12.7 % (21.0-51.0); MEAN CORPUSCULAR HEMOGLOBIN 27.3 pg (27.0-33.0); MEAN CORPUSCULAR HGB CONC 32.2 g/dL (32.0-36.0); MEAN CORPUSCULAR VOLUME 84.9 fL (79-99); MONOCYTES % (AUTO) 8.1 % (3.0-13.0); NEUTROPHILS % (AUTO) 77.1 % (40.0-77.0); PLATELET COUNT (AUTO) 488 K/uL (130-400); RED BLOOD CELL COUNT(AUTO) 2.78 MIL/uL (4.50-6.20); RED CELL DISTRIBUTION WIDTH 15.3 % (11.0-15.5); WHITE BLOOD COUNT (AUTO) 6.6 K/uL (4.8-10.8)
[2020-04-05 05:14] LABS: ALBUMIN 1.1 g/dL (3.5-5.0); BILIRUBIN,TOTAL 0.2 mg/dL (0.2-1.0); CREATININE 0.6 mg/dL (0.5-1.5); MAGNESIUM 1.5 mg/dL (1.80-2.40); PHOSPHORUS 1.4 mg/dL (2.5-4.9); TOTAL PROTEIN, SERUM 3.7 g/dL (6.0-8.3)
[2020-04-05] MEDS: INSULIN HUMULIN R 100 UNIT/ML 3ML SQ SCH ×7 (06:10→21:00)
[2020-04-05] MEDS: POTASSIUM CHLORIDE 20 MEQ ERTAB PO PRN (06:35)
[2020-04-05] MEDS: INSULIN GLARGINE 100 UNITS/ML 10 ML VIAL SQ SCH (06:39)
[2020-04-05 08:00] VITALS: BP 128/69
[2020-04-05] MEDS: VANCOMYCIN 1.75 GM in SODIUM CHLORIDE 0.9% 250 ML IV SCH ×2 (08:47→20:41)
[2020-04-05] MEDS: ENOXAPARIN SODIUM 40 MG/0.4 ML SYRINGE SQ SCH (08:47)
[2020-04-05] MEDS: METRONIDAZOLE 500 MG TABLET PO SCH ×3 (08:47→17:28)
[2020-04-05] MEDS: PANTOPRAZOLE SODIUM 40 MG TABLET.DR PO SCH ×2 (08:48→20:34)
[2020-04-05] MEDS: LEVOFLOXACIN 500 MG TABLET PO SCH (08:48)
[2020-04-05] MEDS: TAMSULOSIN HCL 0.4 MG CAP.ER.24H PO SCH (08:48)
[2020-04-05] MEDS: POTASSIUM CHLORIDE 20 MEQ ERTAB PO SCH (08:48)
[2020-04-05] MEDS: POTASSIUM CHLORIDE 10% ELIXIR 20 MEQ/15 ML UDCUP PO PRN (11:44)
[2020-04-05 12:00] VITALS: BP 126/62
[2020-04-05 16:00] VITALS: BP 116/56
[2020-04-05] MEDS ORDERED: POTASSIUM PHOS 15 mMOL+NS250ML 250 ML IV PRN (16:30)
[2020-04-05 20:54] VITALS: BP 114/56
[2020-04-06 00:20] VITALS: BP 115/59
[2020-04-06 06:11] LABS: HEMATOCRIT 22.5 % (42-54); MEAN CORPUSCULAR HEMOGLOBIN 27.6 pg (27.0-33.0); MEAN CORPUSCULAR HGB CONC 32.9 g/dL (32.0-36.0); RED BLOOD CELL COUNT(AUTO) 2.68 MIL/uL (4.50-6.20); RED CELL DISTRIBUTION WIDTH 15.6 % (11.0-15.5); WHITE BLOOD COUNT (AUTO) 5.1 K/uL (4.8-10.8)
[2020-04-06 06:19] VITALS: BP 118/56
[2020-04-06] MEDS: INSULIN HUMULIN R 100 UNIT/ML 3ML SQ SCH ×7 (06:23→21:00)
[2020-04-06 06:34] LABS: MAGNESIUM 1.5 mg/dL (1.80-2.40); PHOSPHORUS 1.9 mg/dL (2.5-4.9)
[2020-04-06 06:41] LABS: POTASSIUM 2.8 mmol/L (3.5-5.1)
[2020-04-06] MEDS: POTASSIUM CHLORIDE 20MEQ/100ML 100 ML IV PRN (06:46)
[2020-04-06 07:03] LABS: CREATININE 0.6 mg/dL (0.5-1.5)
[2020-04-06] MEDS: LIDOCAINE HCL-MPF 1% 2ML VIAL IV PRN (07:34)
[2020-04-06 08:15] VITALS: BP 110/55
[2020-04-06] MEDS: INSULIN GLARGINE 100 UNITS/ML 10 ML VIAL SQ SCH (08:25)
[2020-04-06] MEDS: LEVOFLOXACIN 500 MG TABLET PO SCH (08:26)
[2020-04-06] MEDS: PANTOPRAZOLE SODIUM 40 MG TABLET.DR PO SCH ×2 (08:26→21:00)
[2020-04-06] MEDS: METRONIDAZOLE 500 MG TABLET PO SCH ×3 (08:26→16:17)
[2020-04-06] MEDS: TAMSULOSIN HCL 0.4 MG CAP.ER.24H PO SCH (08:26)
[2020-04-06] MEDS: ENOXAPARIN SODIUM 40 MG/0.4 ML SYRINGE SQ SCH (08:27)
[2020-04-06] MEDS: POTASSIUM CHLORIDE 20 MEQ ERTAB PO SCH (08:27)
[2020-04-06] MEDS: VANCOMYCIN 1.75 GM in SODIUM CHLORIDE 0.9% 250 ML IV SCH ×2 (10:11→21:00)
[2020-04-06 11:50] VITALS: BP 120/59
[2020-04-06] MEDS: MAGNESIUM 2GM PREMIX 50ML 50 ML IV SCH (12:36)
[2020-04-06] MEDS: POTASSIUM CHLORIDE 10% ELIXIR 20 MEQ/15 ML UDCUP PO PRN ×3 (13:56→18:36)
[2020-04-06 17:32] VITALS: BP 105/50
[2020-04-06] MEDS ORDERED: POTASSIUM PHOS 15 mMOL+NS250ML 250 ML IV PRN (18:15)
[2020-04-06 20:28] VITALS: BP 102/56
[2020-04-07 00:28] VITALS: BP 103/54
[2020-04-07] MEDS: LIDOCAINE HCL-MPF 1% 2ML VIAL IV PRN ×2 (03:10→05:49)
[2020-04-07] MEDS: POTASSIUM CHLORIDE 20MEQ/100ML 100 ML IV PRN ×2 (03:10→05:50)
[2020-04-07 04:31] LABS: HEMATOCRIT 23.3 % (42-54); MEAN CORPUSCULAR HEMOGLOBIN 27.2 pg (27.0-33.0); MEAN CORPUSCULAR HGB CONC 32.2 g/dL (32.0-36.0); MEAN CORPUSCULAR VOLUME 84.4 fL (79-99); RED BLOOD CELL COUNT(AUTO) 2.76 MIL/uL (4.50-6.20); RED CELL DISTRIBUTION WIDTH 15.9 % (11.0-15.5); WHITE BLOOD COUNT (AUTO) 4.9 K/uL (4.8-10.8)
[2020-04-07 04:39] LABS: CREATININE 0.7 mg/dL (0.5-1.5); CRP QUANTITATIVE 90.6 mg/L (0.00-9.0); MAGNESIUM 1.7 mg/dL (1.80-2.40); PHOSPHORUS 2.1 mg/dL (2.5-4.9); POTASSIUM 3.4 mmol/L (3.5-5.1)
[2020-04-07 05:04] VITALS: BP 107/56
[2020-04-07] MEDS: INSULIN HUMULIN R 100 UNIT/ML 3ML SQ SCH ×7 (06:09→21:00)
[2020-04-07 07:15] VITALS: BP 116/57
[2020-04-07] MEDS: TAMSULOSIN HCL 0.4 MG CAP.ER.24H PO SCH (09:00)
[2020-04-07] MEDS: METRONIDAZOLE 500 MG TABLET PO SCH ×3 (09:00→16:49)
[2020-04-07] MEDS: PANTOPRAZOLE SODIUM 40 MG TABLET.DR PO SCH ×2 (09:00→20:52)
[2020-04-07] MEDS: LEVOFLOXACIN 500 MG TABLET PO SCH (09:00)
[2020-04-07] MEDS: POTASSIUM CHLORIDE 20 MEQ ERTAB PO PRN ×2 (09:01→15:08)
[2020-04-07] MEDS: POTASSIUM CHLORIDE 20 MEQ ERTAB PO SCH (09:01)
[2020-04-07] MEDS: ENOXAPARIN SODIUM 40 MG/0.4 ML SYRINGE SQ SCH (09:05)
[2020-04-07] MEDS: INSULIN GLARGINE 100 UNITS/ML 10 ML VIAL SQ SCH (09:14)
[2020-04-07] MEDS: VANCOMYCIN 1.75 GM in SODIUM CHLORIDE 0.9% 250 ML IV SCH ×2 (10:26→20:52)
[2020-04-07] MEDS: MAGNESIUM 2GM PREMIX 50ML 50 ML IV SCH (10:26)
[2020-04-07 11:15] VITALS: BP 113/53
[2020-04-07 14:54] VITALS: BP 114/60
[2020-04-07] MEDS ORDERED: POTASSIUM PHOS 15 mMOL+NS250ML 250 ML IV PRN (19:30)
[2020-04-07 20:51] VITALS: BP 107/50
[2020-04-08] VITALS (7 sets, daily range): BP systolic 89–127; BP diastolic 32–62
[2020-04-08 06:00] LABS: HEMATOCRIT 23.5 % (42-54); MEAN CORPUSCULAR HEMOGLOBIN 27.3 pg (27.0-33.0); MEAN CORPUSCULAR HGB CONC 32.3 g/dL (32.0-36.0); MEAN CORPUSCULAR VOLUME 84.5 fL (79-99); RED BLOOD CELL COUNT(AUTO) 2.78 MIL/uL (4.50-6.20); RED CELL DISTRIBUTION WIDTH 16.3 % (11.0-15.5); WHITE BLOOD COUNT (AUTO) 5.7 K/uL (4.8-10.8)
[2020-04-08 06:23] LABS: CREATININE 0.6 mg/dL (0.5-1.5); MAGNESIUM 1.7 mg/dL (1.80-2.40); PHOSPHORUS 2.2 mg/dL (2.5-4.9); POTASSIUM 3.1 mmol/L (3.5-5.1)
[2020-04-08] MEDS: INSULIN HUMULIN R 100 UNIT/ML 3ML SQ SCH ×7 (07:27→20:12)
[2020-04-08] MEDS: PANTOPRAZOLE SODIUM 40 MG TABLET.DR PO SCH ×2 (08:21→20:12)
[2020-04-08] MEDS: TAMSULOSIN HCL 0.4 MG CAP.ER.24H PO SCH (08:21)
[2020-04-08] MEDS: LEVOFLOXACIN 500 MG TABLET PO SCH (08:21)
[2020-04-08] MEDS: ASPIRIN 81MG TAB.CHEW PO SCH (08:21)
[2020-04-08] MEDS: MAGNESIUM 2GM PREMIX 50ML 50 ML IV SCH (08:21)
[2020-04-08] MEDS: METRONIDAZOLE 500 MG TABLET PO SCH ×3 (08:21→17:01)
[2020-04-08] MEDS: POTASSIUM CHLORIDE 20 MEQ ERTAB PO PRN ×2 (08:22→18:40)
[2020-04-08] MEDS: POTASSIUM CHLORIDE 20 MEQ ERTAB PO SCH (08:22)
[2020-04-08] MEDS: ENOXAPARIN SODIUM 40 MG/0.4 ML SYRINGE SQ SCH (08:24)
[2020-04-08] MEDS: INSULIN GLARGINE 100 UNITS/ML 10 ML VIAL SQ SCH (08:30)
[2020-04-08] MEDS ORDERED: SODIUM CHLORIDE 0.9% IV SCH (09:15)
[2020-04-08] MEDS ORDERED: VANCOMYCIN IV SCH (09:15)
--- NOTE | 2020-04-08 10:15 | NUR ---
RECOMMENDATION FOR R BKA IN MD NOTES- PRIMARY RN STATES PATIENT AND FAMILY HAVE NOT BEEN TOLD YET. ADVISED PRIMARY RN THAT PATIENT MAY LOOK COHERENT, BUT FAMILY ASSISTS WITH ALL DECISION MAKING, FINANCIALS, ETC, SO SON WILL WANT TO BE ADVISED OF RECOMMENDATION AT THE SAME TIME THE PATIENT. TEXT TO DENZEL CANDELARIO- REC FOR BKA, PT AND FAMILY UNAWARE. CM TO FOLLOW UP AND ASSIST WITH DC PLANNING NEEDED. PROJECTING AFTERCARE NEEDS FOLLOWS: THAT IF BKA DONE, FAMILY WILL STILL WANT PATIENT AT HOME POST OP, NOT A SNF.
[2020-04-08 20:47] LABS: APPEARANCE,URINE Cloudy (CLEAR); BILIRUBIN,URINE Negative (NEGATIVE); COLOR,URINE Yellow (YELLOW); GLUCOSE, URINE (UA) 500 mg/dL (NEGATIVE); KETONES,URINE Negative (NEGATIVE); LEUKOCYTE ESTERASE ,URINE Small (NEGATIVE); NITRATE,URINE Negative (NEGATIVE); OCCULT BLOOD,URINE Negative (NEGATIVE); PROTEIN,URINE Negative (NEGATIVE); UROBILINOGEN,URINE 0.2 mg/dL (0.2-1.0)
[2020-04-08] MEDS: HYDROMORPHONE HCL 2 MG/ML VIAL IVP PRN ×2 (21:11→23:00)
[2020-04-08 21:17] LABS: BACTERIA,URINE Few /HPF (None Seen); RBC,URINE 0-1 /HPF (0-1)
[2020-04-08 21:18] LABS: CALCIUM OXALATE CRYSTALS,UR Rare /LPF (None Seen); MUCUS,URINE Few LPF (None Seen); SQUAMOUS EPITHELIAL CELL,UR Few /HPF (0-2)
[2020-04-08] MEDS: VANCOMYCIN 1.25 GM in SODIUM CHLORIDE 0.9% 250 ML IV SCH (22:47)
[2020-04-09] MEDS: HYDROMORPHONE HCL 2 MG/ML VIAL IVP PRN ×3 (01:04→05:21)
[2020-04-09 03:54] VITALS: BP 114/57
[2020-04-09 04:07] LABS: BASOPHILS % (AUTO) 0.3 % (0.0-5.0); EOSINOPHILS % (AUTO) 0.4 % (0.0-8.0); HEMATOCRIT 24.8 % (42-54); LYMPHOCYTES % (AUTO) 16.9 % (21.0-51.0); MEAN CORPUSCULAR HEMOGLOBIN 27.5 pg (27.0-33.0); MEAN CORPUSCULAR HGB CONC 32.7 g/dL (32.0-36.0); MEAN CORPUSCULAR VOLUME 84.1 fL (79-99); MONOCYTES % (AUTO) 6.8 % (3.0-13.0); NEUTROPHILS % (AUTO) 75.2 % (40.0-77.0); PLATELET COUNT (AUTO) 407 K/uL (130-400); RED BLOOD CELL COUNT(AUTO) 2.95 MIL/uL (4.50-6.20); RED CELL DISTRIBUTION WIDTH 16.6 % (11.0-15.5); WHITE BLOOD COUNT (AUTO) 6.9 K/uL (4.8-10.8)
[2020-04-09 04:21] LABS: ALBUMIN 1.2 g/dL (3.5-5.0); BILIRUBIN,TOTAL 0.3 mg/dL (0.2-1.0); CREATININE 0.6 mg/dL (0.5-1.5); MAGNESIUM 1.7 mg/dL (1.80-2.40); PHOSPHORUS 2.2 mg/dL (2.5-4.9); POTASSIUM 3.5 mmol/L (3.5-5.1); TOTAL PROTEIN, SERUM 3.8 g/dL (6.0-8.3)
[2020-04-09 04:22] LABS: INR 1.14 (0.85-1.15); PARTIAL THROMBOPLASTIN TIME 27.7 SEC (26.3-35.5); PROTHROMBIN TIME 12.2 SEC (9.6-11.6)
[2020-04-09] MEDS: VANCOMYCIN 1.25 GM in SODIUM CHLORIDE 0.9% 250 ML IV SCH ×3 (05:45→23:42)
[2020-04-09] MEDS: INSULIN HUMULIN R 100 UNIT/ML 3ML SQ SCH ×7 (05:55→21:00)
[2020-04-09] MEDS: PANTOPRAZOLE SODIUM 40 MG TABLET.DR PO SCH ×2 (08:42→21:08)
[2020-04-09] MEDS: ASPIRIN 81MG TAB.CHEW PO SCH (08:43)
[2020-04-09] MEDS: TAMSULOSIN HCL 0.4 MG CAP.ER.24H PO SCH (08:43)
[2020-04-09] MEDS: LEVOFLOXACIN 500 MG TABLET PO SCH (08:43)
[2020-04-09] MEDS: METRONIDAZOLE 500 MG TABLET PO SCH ×3 (08:43→16:33)
[2020-04-09 08:44] VITALS: BP 99/57
[2020-04-09] MEDS: POTASSIUM CHLORIDE 20 MEQ ERTAB PO SCH (08:44)
[2020-04-09] MEDS: ENOXAPARIN SODIUM 40 MG/0.4 ML SYRINGE SQ SCH (08:47)
[2020-04-09] MEDS: INSULIN GLARGINE 100 UNITS/ML 10 ML VIAL SQ SCH (09:00)
[2020-04-09 11:28] VITALS: BP 80/52
[2020-04-09] MEDS ORDERED: ASPI-1005 PO (14:22)
[2020-04-09] MEDS ORDERED: TAMS-1 PO (14:22)
--- NOTE | 2020-04-09 15:25 | NUR ---
BETADINE DRSG TO RIGHT FOOT PERFORMED; PT. TOLERATED, W/O C/O PAIN. FOOT NOTED DESCRIBED IN DR. SCHMID'S PROGRESS NOTE. F/C REMOVED ORDERED, DTV. URINAL PROVIDED WITHIN REACH AND INSTRUCTED PT. TO CALL FOR ASSISTANCE IF NEEDED, VERBALIZED UNDERSTANDING. CALL LIGHT WITHIN REACH.
[2020-04-09] MEDS ORDERED: SODIUM CHLORIDE 0.9% 500ML 500 ML IV SCH (16:15)
[2020-04-09] MEDS ORDERED: SODIUM CHLORIDE 0.9% 500ML 500 ML IV ONE (16:27)
[2020-04-09] MEDS: HYDROMORPHONE HCL 0.5 MG/0.5 ML ML ONE ×2 (16:34→16:45)
[2020-04-09 17:01] VITALS: BP 107/56
[2020-04-09] MEDS ORDERED: HYDROMORPHONE HCL 0.5 MG/0.5 ML ML IVP SCH (17:35)
[2020-04-09] MEDS: MAGNESIUM 2GM PREMIX 50ML 50 ML IV SCH (18:57)
[2020-04-09 19:57] VITALS: BP 108/64
[2020-04-09 23:55] VITALS: BP 121/72
[2020-04-10 04:01] VITALS: BP 105/46
[2020-04-10] MEDS: VANCOMYCIN 1.25 GM in SODIUM CHLORIDE 0.9% 250 ML IV SCH ×2 (07:04→14:00)
[2020-04-10] MEDS: INSULIN HUMULIN R 100 UNIT/ML 3ML SQ SCH ×4 (07:05→12:42)
--- NOTE | 2020-04-10 09:18 | NUR ---
EXPECT DC TODAY. PT WILL FOLLOWUP WITH PRIMARY MD FOR HOME HEALTH, WOUND CARE, ETC, Addendum: 04/10/20 at 918 by MO DOMINGUEZ RN CM Amended: Links added.
[2020-04-10 09:27] VITALS: BP 105/61
[2020-04-10] MEDS: ASPIRIN 81MG TAB.CHEW PO SCH (09:57)
[2020-04-10] MEDS: POTASSIUM CHLORIDE 20 MEQ ERTAB PO SCH (09:58)
[2020-04-10] MEDS: TAMSULOSIN HCL 0.4 MG CAP.ER.24H PO SCH (09:58)
[2020-04-10] MEDS: PANTOPRAZOLE SODIUM 40 MG TABLET.DR PO SCH (09:58)
[2020-04-10] MEDS: LEVOFLOXACIN 500 MG TABLET PO SCH (09:58)
[2020-04-10] MEDS: INSULIN GLARGINE 100 UNITS/ML 10 ML VIAL SQ SCH (10:00)
[2020-04-10] MEDS: METRONIDAZOLE 500 MG TABLET PO SCH ×2 (10:01→12:41)
[2020-04-10] MEDS: ENOXAPARIN SODIUM 40 MG/0.4 ML SYRINGE SQ SCH (10:02)
[2020-04-10 11:14] VITALS: BP 118/52
[2020-04-10 11:45] VITALS: BP 118/52
--- NOTE | 2020-04-10 12:59 | NUR ---
RD FOLLOW UP Pt continues on 75gm CC, Mechanical soft diet order. Fair to good PO intake, no report of GI distress. Three stage 2 Ulcers on Sacrum. Monitored labs: BG 160, Na 134, Ca 6.3, P 2.2, Mg 1.70, ALT 11, Alb 1.2. Recommend Jamison BID in addition to 500mg Vitamin C BID, 220mg Zinc QD for wound healing support Recommend reinforcement for protein and nutrient supplementation due to increased nutritional need state RD to continue to monitor. Please notify as additional nutrition concerns arise. Thank you.
[2020-04-10 17:24] VITALS: BP 109/56
--- NOTE | 2020-04-10 17:45 | NUR ---
DC PT AWAKE ALERT AND ORIENTED. WOUND CARE DONE TO RIGHT FOOT, INCISION INTACT, EARNEST IN PLACE, AREA WITH DARKENED TISSUE MEASURING 2 IN BY 3/4 IN, COVERED WITH STERILE PROTECTIVE DRSG, TOLERATED WELL. DC INSTRUCTIONS GIVEN TO PT AND SON ANGELA PER PHONE. ACKNOWLEDGED ALL INFORMATION, ALL QUESTIONS ANSWERED. AWARE NEEDS TO FOLLOW UP WITH PCP AND PODIATRY. PT STATES WILL CALL HOME HEALTH TO RESUME OUTPATIENT WOUND CARE UPON ARRIVAL TO HOME. AWAITING FOR PT'S SON FOR TRANSPORTATION. PT MADE AWARE TO RETURN TO ER IN CASE OF EMERGENCY AND TO CALL PCP FOR QUESTIONS OR CONCERNS.
== END 2020-04-10 19:35 | disposition home or self-care (01) | DRG 871 ==
LOC: EDH 12:57 → EDHIP 14:44 → DAHIP 18:41 → 4CH 03-29 18:25
PROVIDERS: ADMIT Internal Medicine; ATTEND Internal Medicine
PROC: 0DB68ZX Excision of Stomach, Via Natural or Artificial Opening Endoscopic, Diagnostic (ICD-10-PCS; principal; 2020-03-29)
DX: A41.9 Sepsis, unspecified organism (principal); E11.10 Type 2 diabetes mellitus with ketoacidosis without coma; E43 Unspecified severe protein-calorie malnutrition; N17.9 Acute kidney failure, unspecified; L03.115 Cellulitis of right lower limb; K21.0 Gastro-esophageal reflux disease with esophagitis; K29.00 Acute gastritis without bleeding; D50.9 Iron deficiency anemia, unspecified; D64.9 Anemia, unspecified; E11.51 Type 2 diabetes mellitus with diabetic peripheral angiopathy without gangrene; E11.649 Type 2 diabetes mellitus with hypoglycemia without coma; E78.5 Hyperlipidemia, unspecified; E83.39 Other disorders of phosphorus metabolism; E83.42 Hypomagnesemia; I10 Essential (primary) hypertension; I25.10 Atherosclerotic heart disease of native coronary artery without angina pectoris; J44.9 Chronic obstructive pulmonary disease, unspecified; K52.89 Other specified noninfective gastroenteritis and colitis; K55.20 Angiodysplasia of colon without hemorrhage; K56.41 Fecal impaction; R65.20 Severe sepsis without septic shock; Z20.828 Contact with and (suspected) exposure to other viral communicable diseases; Z96.41 Presence of insulin pump (external) (internal); Z68.27 Body mass index [BMI] 27.0-27.9, adult; Z79.4 Long term (current) use of insulin; Z88.0 Allergy status to penicillin; Z88.2 Allergy status to sulfonamides; Z91.14 Patient's other noncompliance with medication regimen; Z89.411 Acquired absence of right great toe; Z95.5 Presence of coronary angioplasty implant and graft; Z90.49 Acquired absence of other specified parts of digestive tract; Z89.612 Acquired absence of left leg above knee; Z89.512 Acquired absence of left leg below knee; Z87.891 Personal history of nicotine dependence; Z83.3 Family history of diabetes mellitus; Z82.49 Family history of ischemic heart disease and other diseases of the circulatory system
CPT/HCPCS: 36415; 36430; 36600; 43239; 71045; 73620; 73718; 74018; 74176; 80048; 80053; 80202; 81001; 82140; 82550; 82803; 82948; 83036; 83605; 83735; 83874; 83880; 83935; 84100; 84132; 84145; 84484; 85014; 85018; 85025; 85027; 85378; 85610; 85730; 86140; 86677; 86900; 86901; 87040; 87088; 87426; 88305; 88342; 92610; 93005; 93926; 93970; 97039; 99291; C9113; G0378; J1170; J1650; J1815; J2185; J2212; J2250; J2354; J2405; J2704; J3370; J3475; J3480; J3490; J7030; J7040; J7042; J7050; J7070; J7120; Q0167; U0003

== ENCOUNTER 2020-05-20 19:02 | Inpatient (IN) | payer OTHER, MEDICARE ==
[~2020-05-20] VITALS: Ht 177.8 cm; Wt 67.6 kg
[~2020-05-20 19:02] MED LIST changes: +ASPI-1005 PO; +INSU100V3 SQ; +TAMS-1 PO
[2020-05-20 20:30] LABS: BASOPHILS % (AUTO) 0.3 % (0.0-5.0); EOSINOPHILS % (AUTO) 0.2 % (0.0-8.0); HEMATOCRIT 39.3 % (42-54); LYMPHOCYTES % (AUTO) 3.6 % (21.0-51.0); MEAN CORPUSCULAR HEMOGLOBIN 26.7 pg (27.0-33.0); MONOCYTES % (AUTO) 3.7 % (3.0-13.0); NEUTROPHILS % (AUTO) 91.9 % (40.0-77.0); PLATELET COUNT (AUTO) 534 K/uL (130-400); RED BLOOD CELL COUNT(AUTO) 4.57 MIL/uL (4.50-6.20); RED CELL DISTRIBUTION WIDTH 14.7 % (11.0-15.5); WHITE BLOOD COUNT (AUTO) 19.4 K/uL (4.8-10.8)
[2020-05-20] MEDS ORDERED: ONDANSETRON HCL 4 MG/2 ML VIAL ONE (20:36)
[2020-05-20] MEDS ORDERED: MEROPENEM 1 GM VIAL ONE (20:36)
[2020-05-20 20:41] LABS: POTASSIUM 4.6 mmol/L (3.5-5.1)
[2020-05-20 20:43] LABS: PARTIAL THROMBOPLASTIN TIME 25.3 SEC (26.3-35.5); PROTHROMBIN TIME 10.8 SEC (9.6-11.6)
[2020-05-20 20:45] LABS: ALBUMIN 2.4 g/dL (3.5-5.0); BILIRUBIN,DIRECT 0.1 mg/dL (0.0-0.3); BILIRUBIN,TOTAL 0.4 mg/dL (0.2-1.0); TOTAL PROTEIN, SERUM 6.6 g/dL (6.0-8.3)
[2020-05-20 20:50] LABS: B-TYPE NATRIURETIC PEPTIDE 25 pg/mL (0-100)
[2020-05-21] MEDS ORDERED: METRONIDAZOLE 500MG/100ML BAG 100 ML ONE (00:38)
[2020-05-21] MEDS ORDERED: LEVOFLOXACIN 500 MG/D5W 100 ML 100 ML ONE (00:38)
[2020-05-21] MEDS: SODIUM CHLORIDE 0.9% 1000ML 1,000 ML IV SCH ×3 (04:00→23:55)
[2020-05-21 05:30] VITALS: BP 123/60
[2020-05-21] MEDS ORDERED: DOCUSATE SODIUM 100 MG CAP PO PRN (06:45)
[2020-05-21 06:53] LABS: MEAN CORPUSCULAR HEMOGLOBIN 26.8 pg (27.0-33.0); MEAN CORPUSCULAR HGB CONC 31.3 g/dL (32.0-36.0); MEAN CORPUSCULAR VOLUME 85.6 fL (79-99); RED BLOOD CELL COUNT(AUTO) 3.62 MIL/uL (4.50-6.20); RED CELL DISTRIBUTION WIDTH 14.9 % (11.0-15.5); WHITE BLOOD COUNT (AUTO) 11.5 K/uL (4.8-10.8)
[2020-05-21 07:05] LABS: CREATININE 0.7 mg/dL (0.5-1.5); POTASSIUM 3.9 mmol/L (3.5-5.1)
[2020-05-21 08:25] VITALS: BP_SYST 133; BP_SYST 98; BP_DIAS 53; BP_DIAS 58
[2020-05-21] MEDS: METFORMIN HCL 500 MG TABLET PO SCH ×3 (09:42→20:10)
[2020-05-21] MEDS: METRONIDAZOLE 500MG/100ML BAG 100 ML IVPB SCH ×3 (09:42→23:54)
[2020-05-21] MEDS: ASPIRIN 81MG TAB.CHEW PO SCH (09:42)
[2020-05-21] MEDS: INSULIN GLARGINE 100 UNITS/ML 10 ML VIAL SQ SCH (09:47)
[2020-05-21 12:24] VITALS: BP 119/69
[2020-05-21 16:00] VITALS: BP 120/61
--- NOTE | 2020-05-21 17:03 | NUR ---
IA NOT DONE. Phone numbers listed are not answering.
[2020-05-21 19:58] VITALS: BP 124/67
[2020-05-21] MEDS: TAMSULOSIN HCL 0.4 MG CAP.ER.24H PO SCH (20:07)
[2020-05-21 23:50] VITALS: BP 125/61
[2020-05-21] MEDS: LEVOFLOXACIN 500 MG/D5W 100 ML 100 ML IV SCH (23:54)
[2020-05-22 04:08] VITALS: BP 106/41
[2020-05-22 06:07] LABS: BASOPHILS % (AUTO) 0.5 % (0.0-5.0); EOSINOPHILS % (AUTO) 1.4 % (0.0-8.0); HEMATOCRIT 31.4 % (42-54); LYMPHOCYTES % (AUTO) 34.7 % (21.0-51.0); MEAN CORPUSCULAR HEMOGLOBIN 26.7 pg (27.0-33.0); MEAN CORPUSCULAR HGB CONC 30.9 g/dL (32.0-36.0); MEAN CORPUSCULAR VOLUME 86.5 fL (79-99); MONOCYTES % (AUTO) 6.2 % (3.0-13.0); NEUTROPHILS % (AUTO) 56.9 % (40.0-77.0); PLATELET COUNT (AUTO) 352 K/uL (130-400); RED BLOOD CELL COUNT(AUTO) 3.63 MIL/uL (4.50-6.20); RED CELL DISTRIBUTION WIDTH 14.6 % (11.0-15.5); WHITE BLOOD COUNT (AUTO) 6.7 K/uL (4.8-10.8)
[2020-05-22 06:27] LABS: ALBUMIN 1.6 g/dL (3.5-5.0); BILIRUBIN,TOTAL 0.2 mg/dL (0.2-1.0); MAGNESIUM 1.3 mg/dL (1.80-2.40); PHOSPHORUS 3.4 mg/dL (2.5-4.9); POTASSIUM 3.3 mmol/L (3.5-5.1); TOTAL PROTEIN, SERUM 4.9 g/dL (6.0-8.3)
[2020-05-22] MEDS: ASPIRIN 81MG TAB.CHEW PO SCH (09:10)
[2020-05-22] MEDS: METRONIDAZOLE 500MG/100ML BAG 100 ML IVPB SCH ×2 (09:10→18:27)
[2020-05-22] MEDS: METFORMIN HCL 500 MG TABLET PO SCH ×2 (09:10→20:54)
[2020-05-22] MEDS: INSULIN GLARGINE 100 UNITS/ML 10 ML VIAL SQ SCH (09:12)
[2020-05-22] MEDS: SODIUM CHLORIDE 0.9% 1000ML 1,000 ML IV SCH ×2 (09:13→18:27)
[2020-05-22 09:34] LABS: CREATININE 0.6 mg/dL (0.5-1.5)
[2020-05-22 09:39] VITALS: BP 116/21
[2020-05-22 13:05] VITALS: BP 135/70
--- NOTE | 2020-05-22 14:21 | NUR ---
IA NOT DONE. Phone numbers listed are not answering.
--- NOTE | 2020-05-22 14:30 | NUR ---
PT REQUESTING TO BE TRANSFERRED TO FACILITY WHERE "DR Mallory MCDOWELL" PRACTICES. PT MADE AWARE MD WILL BE MADE AWARE
--- NOTE | 2020-05-22 16:00 | NUR ---
SURGICAL CONSULT DR GONZALEZ'S PA IN TO SEE PT; PT STATES NOT WANTING BKA AND WANTS "DR Mallory MCDOWELL" TO CARE FOR RIGHT LOWER EXTREMITY.
--- NOTE | 2020-05-22 16:38 | NUR ---
RD NOTIFICATION Pt admitted with Colitis, Sepsis. Pt also has Right foot necrotic wound; increased protein needs. Pt is currently tolerating Heart healthy, 75gm CC diet order with no report of GI distress, fair PO intake at 50-75%. Pt LBM 05/21, soft/formed as per EMR. Pt with elevated risk malnutrition secondary to sepsis, necrotic wound, colitis. Pt also with previous amputation. Monitored labs: K 3.3, BUN 6, Mg 1.30, Alb 1.6. Low BMI for age. Also noted A1C 7.9% as per EMR. Recommend add Jamison BID, 500mg Vitamin C BID, 220mg Zinc QD for wound healing support Recommend 60mL ProMod BID secondary to increased protein needs. RD to continue to monitor. Please notify as additional nutrition concerns arise. Thank you.
--- NOTE | 2020-05-22 19:00 | NUR ---
DR SAAVEDRA PT MADE AWARE SECOND OPINION CAN BE OBTAINED FROM DR SAAVEDRA; PT IN AGREEMENT. PER DR SAAVEDRA, STATES WILL SEES PT TOMORROW.
[2020-05-22 19:14] VITALS: BP 153/74
[2020-05-22 20:39] VITALS: BP 137/75
[2020-05-22] MEDS: TAMSULOSIN HCL 0.4 MG CAP.ER.24H PO SCH (20:54)
[2020-05-22 20:59] LABS: APPEARANCE,URINE Clear (CLEAR); BILIRUBIN,URINE Negative (NEGATIVE); COLOR,URINE Yellow (YELLOW); GLUCOSE, URINE (UA) 250 mg/dL (NEGATIVE); KETONES,URINE Negative (NEGATIVE); LEUKOCYTE ESTERASE ,URINE Negative (NEGATIVE); NITRATE,URINE Negative (NEGATIVE); OCCULT BLOOD,URINE Negative (NEGATIVE); PROTEIN,URINE Negative (NEGATIVE); UROBILINOGEN,URINE 0.2 mg/dL (0.2-1.0)
[2020-05-22 21:07] LABS: BACTERIA,URINE Rare /HPF (None Seen); RBC,URINE 0-1 /HPF (0-1); SQUAMOUS EPITHELIAL CELL,UR Rare /HPF (0-2); URIC ACID CRYSTALS,URINE Rare /LPF (None Seen); WBC,URINE 0-1 /HPF (0-1)
[2020-05-22] MEDS: LEVOFLOXACIN 500 MG/D5W 100 ML 100 ML IV SCH (23:44)
[2020-05-23] VITALS (7 sets, daily range): BP systolic 108–130; BP diastolic 58–64
[2020-05-23] MEDS: METRONIDAZOLE 500MG/100ML BAG 100 ML IVPB SCH ×3 (00:54→16:55)
[2020-05-23] MEDS: SODIUM CHLORIDE 0.9% 1000ML 1,000 ML IV SCH ×2 (05:19→16:55)
[2020-05-23 05:22] LABS: BASOPHILS % (AUTO) 0.4 % (0.0-5.0); EOSINOPHILS % (AUTO) 1.7 % (0.0-8.0); HEMATOCRIT 29.7 % (42-54); LYMPHOCYTES % (AUTO) 23.4 % (21.0-51.0); MEAN CORPUSCULAR VOLUME 84.4 fL (79-99); MONOCYTES % (AUTO) 6.2 % (3.0-13.0); NEUTROPHILS % (AUTO) 67.9 % (40.0-77.0); PLATELET COUNT (AUTO) 399 K/uL (130-400); RED BLOOD CELL COUNT(AUTO) 3.52 MIL/uL (4.50-6.20); RED CELL DISTRIBUTION WIDTH 14.6 % (11.0-15.5); WHITE BLOOD COUNT (AUTO) 9.7 K/uL (4.8-10.8)
[2020-05-23 05:35] LABS: ALBUMIN 1.6 g/dL (3.5-5.0); BILIRUBIN,TOTAL 0.2 mg/dL (0.2-1.0); CREATININE 0.7 mg/dL (0.5-1.5); MAGNESIUM 1.3 mg/dL (1.80-2.40); TOTAL PROTEIN, SERUM 4.4 g/dL (6.0-8.3)
[2020-05-23 05:38] LABS: POTASSIUM 2.8 mmol/L (3.5-5.1)
[2020-05-23] MEDS ORDERED: POTASSIUM CHLORIDE 20MEQ/100ML 100 ML IV PRN (06:00)
[2020-05-23] MEDS ORDERED: LIDOCAINE HCL-MPF 1% 2ML VIAL IV PRN (06:00)
[2020-05-23] MEDS ORDERED: POTASSIUM CHLORIDE 20MEQ/100ML 100 ML IV ONE (06:04)
[2020-05-23] MEDS: LIDOCAINE HCL-MPF 1% 2ML VIAL ONE ×2 (06:06→06:08)
[2020-05-23] MEDS: METFORMIN HCL 500 MG TABLET PO SCH ×2 (07:36→21:00)
[2020-05-23] MEDS ORDERED: MAGNESIUM 2GM PREMIX 50ML 50 ML IV PRN (08:15)
[2020-05-23] MEDS: POTASSIUM CHLORIDE 20 MEQ ERTAB PO PRN (08:22)
[2020-05-23] MEDS: ASPIRIN 81MG TAB.CHEW PO SCH (08:22)
[2020-05-23] MEDS ORDERED: POTASSIUM CHLORIDE 10% ELIXIR 20 MEQ/15 ML UDCUP ONE ×2 (08:27→13:47)
[2020-05-23] MEDS: INSULIN GLARGINE 100 UNITS/ML 10 ML VIAL SQ SCH (09:00)
--- NOTE | 2020-05-23 09:00 | NUR ---
PT AWAKE AND ALERT, DENIES DISCOMFORT. PT STATES NOT WANTING INTERVENTION TO FOOT, REFUSING RECOMMENDATIONS FROM PODIATRY AND PCP. PT STATES WILL F/U WITH PCP AND "DR MCDOWELL" OUTPATIENT.
[2020-05-23] MEDS: MAGNESIUM 2GM PREMIX 50ML 50 ML IV SCH (09:18)
[2020-05-23] MEDS: LOPERAMIDE HCL 2 MG CAP PO PRN ×3 (13:49→22:35)
--- NOTE | 2020-05-23 14:24 | NUR ---
BELINDA ISBELL Spoke to patient's son Spencer Cordero [phone]. As per son, patient lives with him, was independent with ADLs before this admission, uses a wheelchair, and has no services or other DME available to him at home. Son to assist with transport at discharge. CM to follow up. Addendum: 05/23/20 at 1432 by KATIA HERNÁNDEZ Amended: Links added.
--- NOTE | 2020-05-23 15:27 | NUR ---
1252 patient signed IM Letter, I faxed IM Letter to [phone] and placed in chart under consent tab
[2020-05-23 17:10] LABS: MAGNESIUM 1.6 mg/dL (1.80-2.40); POTASSIUM 3.6 mmol/L (3.5-5.1)
[2020-05-23] MEDS: TAMSULOSIN HCL 0.4 MG CAP.ER.24H PO SCH (21:12)
[2020-05-24] MEDS: LEVOFLOXACIN 500 MG/D5W 100 ML 100 ML IV SCH ×2 (00:44→23:49)
[2020-05-24] MEDS: METRONIDAZOLE 500MG/100ML BAG 100 ML IVPB SCH ×3 (01:48→16:35)
[2020-05-24] MEDS: SODIUM CHLORIDE 0.9% 1000ML 1,000 ML IV SCH ×3 (02:17→23:50)
[2020-05-24] MEDS: LOPERAMIDE HCL 2 MG CAP PO PRN (03:18)
[2020-05-24 03:50] LABS: BASOPHILS % (AUTO) 0.7 % (0.0-5.0); EOSINOPHILS % (AUTO) 2.7 % (0.0-8.0); HEMATOCRIT 27.8 % (42-54); MEAN CORPUSCULAR HEMOGLOBIN 26.4 pg (27.0-33.0); MEAN CORPUSCULAR HGB CONC 31.3 g/dL (32.0-36.0); MEAN CORPUSCULAR VOLUME 84.2 fL (79-99); MONOCYTES % (AUTO) 7.8 % (3.0-13.0); NEUTROPHILS % (AUTO) 50.5 % (40.0-77.0); PLATELET COUNT (AUTO) 380 K/uL (130-400); RED CELL DISTRIBUTION WIDTH 14.6 % (11.0-15.5)
[2020-05-24 04:02] VITALS: BP 128/63
[2020-05-24 04:21] LABS: ALBUMIN 1.4 g/dL (3.5-5.0); BILIRUBIN,TOTAL 0.1 mg/dL (0.2-1.0); CREATININE 0.7 mg/dL (0.5-1.5); MAGNESIUM 1.5 mg/dL (1.80-2.40); POTASSIUM 3.2 mmol/L (3.5-5.1); TOTAL PROTEIN, SERUM 4.3 g/dL (6.0-8.3)
[2020-05-24] MEDS: POTASSIUM CHLORIDE 20 MEQ ERTAB PO PRN (05:12)
[2020-05-24] MEDS: MAGNESIUM 2GM PREMIX 50ML 50 ML IV SCH (05:13)
[2020-05-24 08:00] VITALS: BP 130/71
--- NOTE | 2020-05-24 08:15 | NUR ---
AM ASSESSMENT PT SITTING IN BED, WATCHING TV. A/O C 3. NO SOB. NO DISTRESS NOTED. DENIES PAIN OR DISCOMFORT. TELE: SR 70s. DENIES N/V AND/OR DIARRHEA. 0.9% NACL INFUSING @ 100 ML/HR. OOB TO CHAIR W/ASSISTANCE. LT BKA, LT PROSTHESIS @ BEDSIDE. RT FOOT DSG DRY & INTACT, NO DRAINAGE NOTED. INSTRUCTED TO CALL FOR ASSISTANCE. CALL DEBRA W/IN REACH.
[2020-05-24] MEDS: ASPIRIN 81MG TAB.CHEW PO SCH (09:36)
[2020-05-24] MEDS: METFORMIN HCL 500 MG TABLET PO SCH ×2 (09:36→20:47)
[2020-05-24] MEDS: INSULIN GLARGINE 100 UNITS/ML 10 ML VIAL SQ SCH (09:39)
[2020-05-24] MEDS: POTASSIUM CHLORIDE 10% ELIXIR 20 MEQ/15 ML UDCUP PO PRN ×2 (11:13→11:15)
[2020-05-24] MEDS ORDERED: GLUCAGON 1MG KIT 1 MG ML IM PRN (11:15)
[2020-05-24] MEDS ORDERED: DEXTROSE 50%-WATER 50 ML DISP.SYRIN IV PRN (11:15)
[2020-05-24 12:06] VITALS: BP 133/75
[2020-05-24] MEDS: INSULIN HUMULIN R 100 UNIT/ML 3ML SQ SCH ×3 (12:55→21:00)
[2020-05-24] MEDS: LOPERAMIDE 1 MG/7.5 ML UDCUP PO SCH ×3 (12:56→20:46)
[2020-05-24 16:00] VITALS: BP 135/69
[2020-05-24 20:00] VITALS: BP 127/62
[2020-05-24] MEDS: TAMSULOSIN HCL 0.4 MG CAP.ER.24H PO SCH (20:46)
[2020-05-25] VITALS: BP 132/71
[2020-05-25] MEDS: METRONIDAZOLE 500MG/100ML BAG 100 ML IVPB SCH ×2 (01:59→08:33)
--- NOTE | 2020-05-25 02:17 | NUR ---
wound care conducted on patient's right foot with betadine cast, kerlex, tim wrap on the right great toe amputation site. patient's right second toe is necrotic. no pain or issues. patient alert and oriented times 3.
[2020-05-25 04:00] VITALS: BP 120/61
[2020-05-25 05:08] LABS: BASOPHILS % (AUTO) 0.5 % (0.0-5.0); EOSINOPHILS % (AUTO) 2.2 % (0.0-8.0); HEMATOCRIT 28.8 % (42-54); LYMPHOCYTES % (AUTO) 34.4 % (21.0-51.0); MEAN CORPUSCULAR HEMOGLOBIN 26.8 pg (27.0-33.0); MEAN CORPUSCULAR HGB CONC 31.6 g/dL (32.0-36.0); MONOCYTES % (AUTO) 8.1 % (3.0-13.0); NEUTROPHILS % (AUTO) 54.6 % (40.0-77.0); PLATELET COUNT (AUTO) 381 K/uL (130-400); RED BLOOD CELL COUNT(AUTO) 3.39 MIL/uL (4.50-6.20); WHITE BLOOD COUNT (AUTO) 8.1 K/uL (4.8-10.8)
[2020-05-25 05:37] LABS: ALBUMIN 1.5 g/dL (3.5-5.0); BILIRUBIN,TOTAL 0.2 mg/dL (0.2-1.0); CREATININE 0.6 mg/dL (0.5-1.5); MAGNESIUM 1.6 mg/dL (1.80-2.40); POTASSIUM 3.4 mmol/L (3.5-5.1); TOTAL PROTEIN, SERUM 4.3 g/dL (6.0-8.3)
[2020-05-25] MEDS: INSULIN HUMULIN R 100 UNIT/ML 3ML SQ SCH ×2 (05:47→11:58)
[2020-05-25] MEDS: POTASSIUM CHLORIDE 20 MEQ ERTAB PO PRN (06:00)
[2020-05-25] MEDS: MAGNESIUM 2GM PREMIX 50ML 50 ML IV SCH (06:00)
[2020-05-25 08:15] VITALS: BP 108/59
--- NOTE | 2020-05-25 08:15 | NUR ---
AM ASSESSMENT PT LAYING IN BED, HOB ELEVATED 30 DEGREES, RESTING. A/O X 3. NO SOB. NO DISTRESS NOTED. DENIES CHEST PAIN OR DISCOMFORT. TELE: SR 70s. DENIES N/V AND/OR DIARRHEA. 0.9% NACL INFUSING @ 100 ML/HR. UP TO CHAIR W/ASSISTANCE. LT BKA, PROSTHESIS. RT FOOT DSG DRY & INTACT, NO DRAINAGE NOTED. INSTRUCTED TO CALL FOR ASSISTANCE. CALL DEBRA W/IN REACH.
[2020-05-25] MEDS: ASPIRIN 81MG TAB.CHEW PO SCH (08:34)
[2020-05-25] MEDS: POTASSIUM CHLORIDE 10% ELIXIR 20 MEQ/15 ML UDCUP PO PRN (08:35)
[2020-05-25] MEDS: METFORMIN HCL 500 MG TABLET PO SCH (08:35)
[2020-05-25] MEDS: LOPERAMIDE 1 MG/7.5 ML UDCUP PO SCH (09:00)
[2020-05-25] MEDS: INSULIN GLARGINE 100 UNITS/ML 10 ML VIAL SQ SCH (11:58)
[2020-05-25 12:00] VITALS: BP 130/77
[2020-05-25] MEDS ORDERED: LOPE2CAP PO (12:18)
--- NOTE | 2020-05-25 14:30 | NUR ---
DISCHARGE VERBAL & WRITTEN DISCHARGE INSTRUCTIONS REVIEWED & GIVEN TO PT IN SPA. QUESTIONS ENCOURAGED & CLARIFIED. PROPER CARE & MGT OF COLITIS. NEW PRESCRIBED MEDICATIONS REVIEWED. PT INFORMED PRESCRIPTION TRANSMITTED TO PHARMACY IN FILE. PT TO F/U W/DR MCDOWELL ON 05/27/20. TELE MENA REMOVED. IV DC'D. PT TO GATHER PERSONAL BELONGINGS. WILL NOTIFY STAFF WHEN SON ARRIVES TO TAKE PT HOME.
--- NOTE | 2020-05-25 15:30 | NUR ---
DISCHARGE SON HERE TO TAKE PT HOME. PT TAKEN TO PRIVATE VEHICLE VIA WC BY MYSELF, Rob AMEZCUA RN. ACCOMPANIED BY SON. NO DISTRESS NOTED.
== END 2020-05-25 15:00 | disposition home or self-care (01) | DRG 871 ==
LOC: EDH 19:02 → OBSVTOIN 23:07 → EDHIP 23:07 → 4DH 05-21 05:30
PROVIDERS: ADMIT Internal Medicine Pulmonary Disease; ATTEND Internal Medicine Pulmonary Disease
DX: A41.9 Sepsis, unspecified organism (principal); E43 Unspecified severe protein-calorie malnutrition; A04.9 Bacterial intestinal infection, unspecified; E11.52 Type 2 diabetes mellitus with diabetic peripheral angiopathy with gangrene; L89.899 Pressure ulcer of other site, unspecified stage; I10 Essential (primary) hypertension; I99.8 Other disorder of circulatory system; R23.0 Cyanosis; E78.5 Hyperlipidemia, unspecified; Z89.512 Acquired absence of left leg below knee; Z88.0 Allergy status to penicillin; Z90.49 Acquired absence of other specified parts of digestive tract; Z88.2 Allergy status to sulfonamides; Z79.4 Long term (current) use of insulin; Z68.21 Body mass index [BMI] 21.0-21.9, adult
CPT/HCPCS: 36415; 71045; 74176; 80048; 80053; 80076; 81001; 82550; 82948; 83605; 83690; 83735; 83880; 84100; 84132; 84484; 85025; 85027; 85610; 85730; 87040; 93005; G0378; J1956; J2185; J2405; J3475; J3480; J3490; J7030